=== PATIENT | female | born 1995 | race Caucasian/White ===

== ENCOUNTER 2018-06-24 00:45 | Outpatient (CLI) | payer OTHER, SELFPAY ==
--- NOTE | 2018-06-24 12:41 | DI.US_ITS ---
SYMPTOM/DIAGNOSIS: RT SIDED PELVIC PAIN, IUD PLACEMENT, R10.2 PELVIC ULTRASOUND: Pelvic ultrasound was performed transabdominally and transvaginally. Please see the worksheet for measurements of the pelvic structures. The ovaries have a normal follicular appearance. No free fluid identified in the cul-de-sac. There is an IUD in place in the endometrial cavity. Endometrial stripe is about 4 mm. in thickness. Limited scanning of the kidneys is unremarkable. CONCLUSION: Negative pelvic ultrasound.
== END 2018-06-24 01:05 ==
PROVIDERS: PCP Pediatrics; Visit Provider Nurse Practitioner Women's Health
DX: R10.2 Pelvic and perineal pain (principal); Z30.431 Encounter for routine checking of intrauterine contraceptive device
CPT/HCPCS: 76830; 76856